=== PATIENT | female | born 1965 | race Two or more races ===

== ENCOUNTER 2016-03-27 20:14 | Emergency (ER) | payer SELFPAY ==
[~2016-03-27] VITALS: Ht 152.4 cm; Wt 70.3 kg
[~2016-03-27 20:14] MED LIST: SULF1TAB24 PO
[2016-03-28 00:34] LABS: NEG OBC UR NEG; POS OBC UR POS
[2016-03-28] MEDS ORDERED: ACETAMINOPHEN 500 MG TABLET PO ONE (00:45)
[2016-03-28 01:24] VITALS: BP 136/73
[2016-03-28 01:32] LABS: BILIRUBIN,URINE NEGATIVE (NEG); GLUCOSE,URINE NEGATIVE (NEG); NITRITE,URINE NEGATIVE (NEG); PH,URINE 5.5; PROTEIN,URINE NEGATIVE (NEG-TRACE); UROBILINOGEN,URINE 0.2 mg/dL (0.2 mg/dL)
[2016-03-28 01:38] LABS: BACTERIA,URINE MODERATE /HPF (0-FEW); RBC,URINE TNTC /HPF (0-2); SQUAMOUS EPITHELIAL CELL,UR MOD /LPF; WBC,URINE 20-40 /HPF (0-4)
[2016-03-28] MEDS ORDERED: CIPR250T PO (02:07)
[2016-03-28] MEDS ORDERED: PHEN100T82 PO (02:07)
--- NOTE | 2016-03-28 02:07 | PHYS DOC ---
Past Medical History Past Medical History: Anxiety, Depression, Diabetes-Type II, Migraines Additional Past Medical Histor: Chronic back pain, "Mental Problems", "Memory Problems" Past Surgical History: No Surgical History Additional Information: CHEWS TOBACCO Alcohol Use: None Drug Use: None Adult General Chief Complaint Chief Complaint: ABDOMINAL PAIN [facility] HPI Patient is a 51 year old Serbian speaking female who presents with 1 day of suprapubic abdominal pain and dysuria that is constant, achy, nonradiating. She also mentions multiple chronic medical problems that she is following with her primary care doctor and states she is not actually here to be treated for these things. She denies fever or chills, nausea or vomiting, diarrhea, vaginal discharge. She states she is currently on her menstrual cycle and has regular cycles. Review of Systems Review of Systems Constitutional: Denies fever or chills [] Eyes: Denies change in visual acuity, redness, or eye pain [] HENT: Denies nasal congestion or sore throat [] Respiratory: Denies cough or shortness of breath [] Cardiovascular: No additional information not addressed in HPI [] GI: Denies nausea, vomiting, bloody stools or diarrhea [] : Denies hematuria [] Musculoskeletal: Denies back pain or joint pain [] Integument: Denies rash or skin lesions [] Neurologic: Denies headache, focal weakness or sensory changes [] Endocrine: Denies polyuria or polydipsia [] Current Medications Current Medications Current Medications Medications (Trade) Dose Ordered Sig/Charmaine Start Time Stop Time Status Last Admin Dose Admin Acetaminophen (Tylenol) 1,000 mg 1X ONCE 03/28/16 00:45 03/28/16 00:46 DC 03/28/16 01:31 1,000 MG Allergies Allergies Allergies Coded Allergies Type Severity Reaction Last Updated Verified ibuprofen Allergy Intermediate 03/28/16 No Physical Exam Physical Exam Constitutional: Well developed, well nourished, no acute distress, non-toxic appearance. [] HENT: Normocephalic, atraumatic, bilateral external ears normal, oropharynx moist, no oral exudates, nose normal. [] Eyes: PERRLA, EOMI. [] Neck: Normal range of motion, supple. [] Cardiovascular:Heart rate regular rhythm [] Lungs & Thorax: Bilateral breath sounds clear to auscultation [] Abdomen: Bowel sounds normal, soft, mild suprapubic tenderness, no guarding or rebound, no pulsatile masses. [] Skin: Warm, dry, no erythema, no rash. [] Back: No tenderness, no CVA tenderness. [] Extremities: No tenderness, ROM intact, no edema. [] Neurologic: Alert and oriented X 3, normal motor function, normal sensory function, no focal deficits noted. [] Psychologic: Affect normal, judgement normal, mood normal. [] Current Patient Data Vital Signs Vital Signs Date Time Temp Pulse Resp B/P Pulse Ox O2 Delivery O2 Flow Rate FiO2 03/28/16 01:24 96 136/73 96 Room Air 03/27/16 23:42 98.0 24 98.0 Lab Values Laboratory Tests Test 03/27/16 23:10 03/28/16 01:21 Urine Test Negative (NEG) Urine Collection Type Unknown Urine Color Red Urine Clarity Cloudy Urine pH 5.5 Urine Specific [place] 1.015 Urine Protein Negativemg/dL (NEG-TRACE) Urine Glucose (UA) Negativemg/dL (NEG) Urine Ketones (Stick) Tracemg/dL (NEG) Urine Blood Large (NEG) Urine Nitrite Negative (NEG) Urine Bilirubin Negative (NEG) Urine Urobilinogen Dipstick 0.2mg/dL (0.2 mg/dL) Urine Leukocyte Esterase Large (NEG) Urine RBC Tntc/HPF (0-2) Urine WBC 20-40/HPF (0-4) Urine Squamous Epithelial Cells Mod/LPF Urine Bacteria Moderate/HPF (0-FEW) Urine Mucus Mod/LPF Course & Med Decision Making Course & Med Decision Making Pertinent Labs and Imaging studies reviewed. (See chart for details) Will treat for urinary tract infection. She will follow-up with her other chronic medical problems with her primary care doctor. Return precautions given. She understands and agrees with plan. Entire encounter was performed using [employer] speaking educational sign language interpreter. Dragon Disclaimer Dragon Disclaimer This electronic medical record was generated, in whole or in part, using a voice recognition dictation system. Departure Departure Impression: Primary Impression: Acute cystitis without hematuria Disposition: HOME, SELF-CARE Condition: STABLE Referrals: UNKNOWN PCP NAME (PCP) Patient Instructions: Urinary Tract Infection, [id number] Additional Instructions: Take Cipro for urinary tract infection. Take Pyridium to help with pain. Follow- up with your primary care doctor. Return for any concerns. Scripts Phenazopyridine Hcl (Pyridium)100 Mg [id number] Mg PO TID #6 TAB Prov:Jer BARHTOLOMEW MD 03/28/16 Ciprofloxacin Hcl 250 Mg Tablet1 Tab PO BID #6 TAB Prov:Jer BARTHOLOMEW MD 03/28/16 Jer BARTHOLOMEW MD Mar 28, 2016 02:07
== END 2016-03-28 02:16 | disposition home or self-care (01) ==
LOC: ER 20:14
DX: N30.00 Acute cystitis without hematuria (principal); E11.9 Type 2 diabetes mellitus without complications; G89.29 Other chronic pain; M54.9 Dorsalgia, unspecified; G43.909 Migraine, unspecified, not intractable, without status migrainosus; F17.220 Nicotine dependence, chewing tobacco, uncomplicated; Z88.6 Allergy status to analgesic agent
CPT/HCPCS: 81001; 81025; 87086; 99284